=== PATIENT | female | born 1985 | race Caucasian/White ===

== ENCOUNTER 2024-01-11 16:23 | Emergency (ER) | payer MEDICAID ==
[~2024-01-11] VITALS: Ht 162.6 cm; Wt 110.8 kg
[2024-01-11 16:24] VITALS: BP 158/89; PULSE 96; RESP 16; TEMP 98.2; O2SAT 100
[2024-01-11] MEDS ORDERED: CEFD300C3 PO (16:30)
== END 2024-01-11 16:39 | disposition home or self-care (01) ==
LOC: ER 16:24
DX: J02.9 Acute pharyngitis, unspecified (principal); Z88.6 Allergy status to analgesic agent
CPT/HCPCS: 99283